=== PATIENT | male | born 1940 | race Caucasian/White ===

== ENCOUNTER 2019-12-07 10:34 | Day surgery (SDC) | payer MEDICARE ==
[2019-12-07] MEDS ORDERED: Acetaminophen 500 MG Tab PO ONE (10:45)
[2019-12-07] MEDS ORDERED: ceFAZolin 2 GM in Premix Bag 1 BAG IV ONE (11:00)
[2019-12-07] MEDS ORDERED: Dextrose 5%-Lactated Ringers 1,000 ML IV SCH (11:00)
[2019-12-07] MEDS ORDERED: fentaNYL 100 MCG/2 ML SDV ONE (13:21)
[2019-12-07] MEDS ORDERED: Propofol 200 MG/20 ML SDV ONE (13:21)
[2019-12-07] MEDS ORDERED: Lidocaine 0.5% 50 ML SDV ONE (13:22)
--- NOTE | 2019-12-12 14:16 | OR ---
DATE OF PROCEDURE: 12/07/2019 SURGEON: Aaron Myrick MD PREOPERATIVE DIAGNOSIS: Left carpal tunnel syndrome. POSTOPERATIVE DIAGNOSIS: Left carpal tunnel syndrome. OPERATIVE PROCEDURE: Left carpal tunnel release ([id number]). ANESTHESIA: IV block plus sedation. INDICATIONS FOR PROCEDURE: The patient is status post recent EMG showing left carpal tunnel syndrome. The patient now has some nerve abnormalities in terms of conduction in the ulnar nerve at the elbow area, but on testing position, I felt these were not at this point symptomatic. Plan is to proceed therefore with left carpal tunnel release noting at some point in the future, he might need a cubital tunnel release as well. Potential risks of the procedure including bleeding, infection, injury to the median nerve and/or its branches, and possible incomplete relief of symptoms were all reviewed with the patient and he wishes to proceed. DETAILS OF PROCEDURE: The patient was taken to the operating room and placed in a supine position after an IV block was placed effecting the left forearm and hand. Those areas were prepped and draped. Standard left carpal tunnel incision was then made and carried down through the skin and subcutaneous tissue. The transverse carpal ligament was then encountered and then divided for the length of the carpal tunnel including out into the palm of the hand maintaining orientation with regard to the underlying median nerve to minimize nerve branch injuries. The ligament was quite thickened and retracted under tension upon its division. The underlying median nerve was otherwise unremarkable. At this point, subcutaneous tissue was then approximated with some 3-0 Vicryl stitch and the skin with 4-0 Vicryl skin stitch. Dressing was applied. The patient was taken to the recovery room in satisfactory condition. Aaron Myrick MD /[id number]
== END 2019-12-07 15:51 | disposition home or self-care (01) ==
LOC: JP.SDS 10:34
PROVIDERS: ATTEND Surgery
DX: G56.02 Carpal tunnel syndrome, left upper limb (principal); E11.9 Type 2 diabetes mellitus without complications
CPT/HCPCS: 64721; A9270; J0690; J2704; J3010; J7121; 88304; J2001

== ENCOUNTER 2024-11-29 06:43 | Day surgery (SDC) | payer MEDICARE ==
[2024-11-29] MEDS ORDERED: fentaNYL 50 MCG/ML SDV ONE (06:59)
[2024-11-29] MEDS ORDERED: Propofol 200 MG/20 ML SDV ONE (06:59)
[2024-11-29] MEDS: Lactated Ringers 1,000 ML IV SCH (07:26)
== END 2024-11-29 10:55 | disposition home or self-care (01) ==
LOC: JP.SDS 06:43
PROVIDERS: ATTEND Surgery
DX: K44.9 Diaphragmatic hernia without obstruction or gangrene (principal); R19.5 Other fecal abnormalities; D50.0 Iron deficiency anemia secondary to blood loss (chronic); E11.9 Type 2 diabetes mellitus without complications; I10 Essential (primary) hypertension
CPT/HCPCS: 00813-QZ; J2704; J3010; J7120

== ENCOUNTER 2025-02-07 11:48 | Emergency (ER) | payer MEDICARE ==
[2025-02-07] MEDS ORDERED: Sodium Chloride 0.9% 10 ML Syringe FLUSH PRN (12:34)
[2025-02-07 12:48] LABS: BASOPHILS ABSOLUTE AUTO 0.03 K/uL (0.00-0.10); BASOPHILS PERCENT AUTO 0.2 % (0.1-1.3); EOSINOPHILS ABSOLUTE AUTO 0.03 K/uL (0.00-0.40); EOSINOPHILS PERCENT AUTO 0.2 % (0.0-5.4); IMMATURE GRAN ABSOLUTE AUTO 0.29 K/uL (0.00-0.23); IMMATURE GRAN PERCENT AUTO 2.1 % (0.0-0.7); LYMPHOCYTES ABSOLUTE AUTO 0.83 K/uL (0.8-3.3); LYMPHOCYTES PERCENT AUTO 6.0 % (11.4-47.7); MONOCYTES ABSOLUTE AUTO 2.07 K/uL (0.20-0.90); MONOCYTES PERCENT AUTO 15.1 % (3.3-12.6); NEUTROPHILS ABSOLUTE AUTO 10.49 K/uL (1.0-7.6); NEUTROPHILS PERCENT AUTO 76.4 % (40.0-78.1); PLATELET COUNT,PLT 228 K/uL (130-375); RED BLOOD CELL COUNT 3.02 M/uL (4.14-5.76); WHITE BLOOD CELL COUNT,WBC 13.7 K/uL (3.2-11.0)
[2025-02-07 13:09] LABS: A/G RATIO 0.7 (1.2-2.2); ALANINE AMINOTRANSFERASE,ALT 15 U/L (12-78); ASPARTATE AMNIOTRANSFERASE,AST 17 U/L (15-37); BILIRUBIN TOTAL 0.3 mg/dL (0.2-1.0); BLOOD UREA NITROGEN,BUN 39 mg/dL (7-18); CARBON DIOXIDE,CO2 25 mmol/L (21-32); CHLORIDE,CL 96 mmol/L (100-108); CREATININE 2.9 mg/dL (0.8-1.3); EST CRCL DRUG DOSING (CG) 18.02 mL/min; ESTIMATED GFR 21 mL/min (>60); GLUCOSE RANDOM 201 mg/dL (74-106); POTASSIUM,K 5.7 mmol/L (3.6-5.2); PROTEIN TOTAL,TP 7.5 g/dL (6.4-8.2); SODIUM,NA 131 mmol/L (140-148)
[2025-02-07 15:17] LABS: CORONAVIRUS COVID-19 NAA NEGATIVE (NEGATIVE); INFLUENZA A NAA NEGATIVE (NEGATIVE); INFLUENZA B NAA NEGATIVE (NEGATIVE); RESPIRATORY SYNCYTIAL VIR NAA NEGATIVE (NEGATIVE)
[2025-02-07] MEDS: Sodium Polystyrene Sulfonate 15 GM/60 ML Susp 60 ML Bot PO ONE (16:43)
== END 2025-02-07 16:51 | disposition home or self-care (01) ==
LOC: JP.ED 11:48
DX: M54.2 Cervicalgia (principal); G44.209 Tension-type headache, unspecified, not intractable; E87.5 Hyperkalemia; E11.9 Type 2 diabetes mellitus without complications; E78.00 Pure hypercholesterolemia, unspecified; Z79.4 Long term (current) use of insulin; Z79.899 Other long term (current) drug therapy; Z90.49 Acquired absence of other specified parts of digestive tract; Z88.5 Allergy status to narcotic agent; Z88.8 Allergy status to other drugs, medicaments and biological substances
CPT/HCPCS: 36415; 70450; 70450-26; 71046; 71046-26; 72125; 72125-26; 80053; 83605; 85025; 86140; 86618; 87040; 87637; 93005; 93010; 96360; 99284; 99284-25; A9270-GY; J7030

== ENCOUNTER 2025-02-20 12:10 | Emergency (ER) | payer MEDICARE ==
[2025-02-20 13:34] LABS: BASOPHILS PERCENT AUTO 0.1 % (0.1-1.3); EOSINOPHILS ABSOLUTE AUTO 0.04 K/uL (0.00-0.40); EOSINOPHILS PERCENT AUTO 0.5 % (0.0-5.4); IMMATURE GRAN ABSOLUTE AUTO 0.11 K/uL (0.00-0.23); IMMATURE GRAN PERCENT AUTO 1.2 % (0.0-0.7); LYMPHOCYTES ABSOLUTE AUTO 0.90 K/uL (0.8-3.3); LYMPHOCYTES PERCENT AUTO 10.2 % (11.4-47.7); MONOCYTES ABSOLUTE AUTO 0.98 K/uL (0.20-0.90); MONOCYTES PERCENT AUTO 11.1 % (3.3-12.6); NEUTROPHILS ABSOLUTE AUTO 6.78 K/uL (1.0-7.6); NEUTROPHILS PERCENT AUTO 76.9 % (40.0-78.1); PLATELET COUNT,PLT 312 K/uL (130-375); RED BLOOD CELL COUNT 2.62 M/uL (4.14-5.76); WHITE BLOOD CELL COUNT,WBC 8.8 K/uL (3.2-11.0)
[2025-02-20 13:37] LABS: BASOPHILS ABSOLUTE AUTO 0.01 K/uL (0.00-0.10)
[2025-02-20 14:03] LABS: A/G RATIO 0.4 (1.2-2.2); ALANINE AMINOTRANSFERASE,ALT 17 U/L (12-78); ASPARTATE AMNIOTRANSFERASE,AST 15 U/L (15-37); BILIRUBIN TOTAL 0.3 mg/dL (0.2-1.0); BLOOD UREA NITROGEN,BUN 30 mg/dL (7-18); CARBON DIOXIDE,CO2 29 mmol/L (21-32); CHLORIDE,CL 97 mmol/L (100-108); CREATININE 2.4 mg/dL (0.8-1.3); EST CRCL DRUG DOSING (CG) 21.85 mL/min; ESTIMATED GFR 26 mL/min (>60); GLUCOSE RANDOM 309 mg/dL (74-106); POTASSIUM,K 4.8 mmol/L (3.6-5.2); PROTEIN TOTAL,TP 7.2 g/dL (6.4-8.2); SODIUM,NA 132 mmol/L (140-148)
[2025-02-20 14:05] LABS: LACTIC ACID 0.6 mmol/L (0.4-2.0)
[2025-02-20 15:47] LABS: APPEARANCE,URINE CLEAR (CLEAR); GLUCOSE,URINE 500 mg/dL (NEGATIVE); OCCULT BLOOD,URINE TRACE-INTACT (NEGATIVE)
[2025-02-20 15:59] LABS: SQUAMOUS EPITHELIAL CELLS,UR RARE /HPF; UROTHELIAL CELLS,URINE NOT SEEN /HPF
[2025-02-20 16:10] LABS: CORONAVIRUS COVID-19 NAA NEGATIVE (NEGATIVE); INFLUENZA A NAA NEGATIVE (NEGATIVE); INFLUENZA B NAA NEGATIVE (NEGATIVE); RESPIRATORY SYNCYTIAL VIR NAA NEGATIVE (NEGATIVE)
== END 2025-02-20 20:46 | disposition home or self-care (01) ==
LOC: JP.ED 12:10
DX: D64.9 Anemia, unspecified (principal); J84.10 Pulmonary fibrosis, unspecified; E86.0 Dehydration; E78.00 Pure hypercholesterolemia, unspecified; K21.9 Gastro-esophageal reflux disease without esophagitis; E11.9 Type 2 diabetes mellitus without complications; Z90.49 Acquired absence of other specified parts of digestive tract; Z87.891 Personal history of nicotine dependence; Z88.6 Allergy status to analgesic agent; Z88.8 Allergy status to other drugs, medicaments and biological substances; Z79.4 Long term (current) use of insulin; Z79.899 Other long term (current) drug therapy
CPT/HCPCS: 36415; 36430; 80053; 81001; 83605; 84484; 85025; 86140; 86850; 86900; 86901; 86920; 86922; 87637; 93005; 96360; 99285; A9270; J7030; P9016